=== PATIENT | female | born 1975 | race Caucasian/White ===

== ENCOUNTER 2019-08-17 19:09 | Emergency (ER) | payer OTHER, SELFPAY ==
--- NOTE | ~2019-08-17 | CT_ITS ---
EXAMINATION: CTA chest PE protocol DATE: 08/17/2019 20:05 INDICATION: Exertional dyspnea TECHNIQUE: Computed tomography angiography (CTA) of the chest was performed with 100 mL Omnipaque-350 intravenous contrast timed to evaluate the pulmonary arteries. Coronal maximum intensity projection 3D-reconstructions were created by the technologist. The dose-length product (DLP) was 353.30 mGy-cm. Automated exposure control and iterative reconstruction technique were employed. COMPARISON: None. FINDINGS: The pulmonary arteries are well-opacified. No pulmonary embolism is identified. The lungs a re free of focal airspace opacities. There is no pleural effusion or pneumothorax. Calcified granulom a is present in the left upper lobe. No pathologically enlarged thoracic lymph nodes are identified. The heart size is normal. There is a small bursal fluid collection with associated calcification of t he left shoulder. A 10 mm soft tissue density in the midline upper back likely represents a sebaceous cyst. IMPRESSION: 1. No pulmonary embolism or acute cardiopulmonary abnormality. Reviewed, dictated and finalized at location A.
[2019-08-17 19:14] VITALS: BP 150/95; PULSE 88; RESP 18; TEMP 37.1; O2SAT 98
--- NOTE | 2019-08-17 19:16 | ED.CHESTPAIN ---
HPI - Chest Pain General Chief Complaint: Chest Pain Stated Complaint: CP Time Seen by Provider: 08/17/19 19:13 Source: patient and RN notes reviewed Mode of arrival: other Limitations: no limitations History of Present Illness HPI narrative: Pt is a 44 y/o female who presents to the ED with c/o constant midsternal chest pain that began one month ago. Pt denies having any chest x-rays or CT scans done since her sx began. Pt denies any long travel or flying for long distances. She also denies any alleviating factors and eating any spicy foods for dinner. Pt notes that she has a copper IUD. Pt's spouse notes that they have been working out and the pt's heart rate would jump to 195 BPM. Pt would have chest pain after their workout. Pt notes that her PCP has been concerned about her LDL levels and she began taking a new medication. Pt is unsure which medication she was recently prescribed. Pt has a scheduled stress test for tomorrow. Pt's spouse states the pt began to feel dizzy and cold today. Pt denies her sx being similar to an anxiety attack. Pt denies having a hx of anxiety or anxiety attacks. Pt notes that she had a lumpectomy and she notes that the physian who did the procedure punctured her lung. She notes that her lungs have not felt the same since the procedure. Pt also reports SOB, but denies a fever. Pt's PCP is Dr. Melara at [facility]. complaint: chest pain Onset (ago): month(s) (1) Timing of current episode: constant Pain radiation: none Associated symptoms: other (dizziness) Treatment prior to arrival: none Related Data Allergies Allergy/AdvReac Type Severity Reaction Status Date / Time phenobarbital Allergy Unknown Verified 08/17/19 19:37 Review of Systems Review of Systems: Narrative: CONSTITUTIONAL: Denies fever, chills, or sweats. EYES: Denies visual changes, redness, or discharge. CARDIOVASCULAR: Denies current chest pain, reports palpitations, now resolved, denies edema RESPIRATORY: Denies cough or dyspnea. GASTROINTESTINAL: Denies abdominal pain, nausea, vomiting, or diarrhea. GENITOURINARY: Denies dysuria or hematuria. SKIN: Denies rash or itching. MUSCULOSKELETAL: Denies back pain, joint pain, or myalgia. NEUROLOGIC: Denies headache, numbness, or weakness. PSYCHIATRIC: Reports some mild anxiety, no anxiety currently All systems reviewed & are unremarkable except as noted in HPI and below PMFSH Past Medical History Medical History (Updated 08/17/19 @ 21:28 by Tawana Greer MD) IUD (intrauterine device) in place Pneumothorax Surgical History Surgical History (Updated 08/17/19 @ 19:26 by Mary Anne Nash) Hx of lumpectomy Social History Social History (Updated 08/17/19 @ 19:44 by Mary Anne Nash) Smoking status: Never smoker Alcohol intake: former Gender identity (if verbalized by the patient): Female Exam Narrative: Exam Narrative: GENERAL: Well-appearing, well-nourished, and in no acute distress. Tearful. HEAD: Normocephalic, atraumatic. EYES: PERRLA and EOMI. ENT: Nares clear, no rhinorrhea or epistaxis. Mucous membranes moist. NECK: Supple. CHEST: Clear to auscultation. No respiratory distress. No chest wall tenderness. HEART: Regular rate and rhythm. No murmur heard. Normal peripheral pulses. EXTREMITIES: Normal range of motion. No edema. SKIN: Warm, dry, no rash. NEURO: No focal deficits. Alert and oriented X3. Course Course Emergency Course: Patient's EKG and labs are without significant high risk changes. Cardiac risk factors reviewed. Patient is felt low risk for ACS and reasonable for further risk stratification testing as an outpatient. Pain was not sudden or maximal or onset without tearing or ripping quality. No other signs or symptoms to suggest aortic dissection. No PE found on CTA. No pneumonia seen on evaluation today. No arrhythmias while monitored in the ER. Patient is scheduled for a follow-up with her primary care physician tomorrow, stress test later in the week. Giv
--- NOTE | 2019-08-17 19:19 | ECG_ITS ---
Measurements Intervals [place] Rate: 79 P: 41 MS: 143 QRS: 41 QRSD: 76 T: 29 QT: 343 QTc: 395 Interpretive Statements SINUS RHYTHM BASELINE ARTIFACT- I, II, III, AVR, AVL, V1 NORMAL ECG Electronically Signed On 08-17-2019 19:32:35 CDT by Clifton Andre D.O.
[2019-08-17] MEDS: ASPIRIN 81 MG CHEWABLE TABLET 324 MG PO (19:41)
[2019-08-17 19:44] LABS: Basophils Absolute Auto 0.1 K/mm3 (0.0-0.1); Basophils Percent Auto 0.5 % (0.2-1.2); Eosinophils Absolute Auto 0.2 K/mm3 (0-0.3); Eosinophils Percent Auto 1.1 % (0-4.4); Hematocrit 38.7 % (37.0-47.0); Hemoglobin 12.8 g/dL (12.0-15.0); Immature Granulocyte Absolute 0.05 K/mm3 (0.00-0.031); Immature Granulocyte Percent A 0.4 % (0-0.5); Lymphocytes Absolute Auto 3.83 K/mm3 (0.9-3.2); Lymphocytes Percent Auto 27.3 % (18.3-44.2); Mean Corpuscular HGB Conc 33.1 g/dl (32-36); Mean Corpuscular Hemoglobin 30.8 pg (26-34); Mean Corpuscular Volume 93.3 fl (80-100); Mean Platelet Volume 11.1 fl (7.4-10.4); Monocytes Percent Auto 7.4 % (2.6-8.5); Neutrophils Absolute Auto 8.9 K/mm3 (1.3-6.7); Neutrophils Percent Auto 63.3 % (45.5-73.1); Platelet Count Result 290 k/mm3 (150-375); Red Blood Count 4.15 M/mm3 (4.2-5.4); Red Cell Distribution Width 13.2 % (11.5-14.5); White Blood Count 14.1 K/mm3 (4.5-10.0)
[2019-08-17 19:49] VITALS: PULSE 88
[2019-08-17 19:51] LABS: Estimated CRCL calculation 57 ml/min; Estimated Glomerular Filt Rate 44
[2019-08-17 19:55] LABS: Blood Urea Nitrogen 21 mg/dL (7-17); Calcium 9.4 mg/dL (8.4-10.2); Carbon Dioxide 27 mmol/L (22-30); Chloride 104 mmol/L (98-107); Estimated CRCL calculation 67 ml/min; Estimated Glomerular Filt Rate 54; Glucose 102 mg/dL (65-105); Sodium 137 mmol/L (137-145)
[2019-08-17 20:01] LABS: Partial Thromboplastin Time 28.6 SECONDS (22.3-36.8)
[2019-08-17 20:07] LABS: NT Pro B Type Natriuretic Pept 17 PG/ML (5-100); Troponin I < 0.012 ng/mL (0.000-0.034)
[2019-08-17 20:37] VITALS: BP 105/72; PULSE 76; RESP 14; O2SAT 100
[2019-08-17 22:58] VITALS: BP 110/68; PULSE 69; RESP 15; TEMP 36.2; O2SAT 97
== END 2019-08-17 23:02 | disposition home or self-care (01) ==
PROVIDERS: Emergency Provider Emergency Medicine
DX: R07.89 Other chest pain (principal)
CPT/HCPCS: 36415; 71275; 80048; 83880; 84484; 85025; 85610; 85730; 93005; 99284; A9270; Q9967